=== PATIENT | male | born 1975 | race African-American/Black ===

== ENCOUNTER 2023-01-20 19:32 | Emergency (ER) | payer SELFPAY ==
[2023-01-20] MEDS ORDERED: Acetaminophen 500 MG TAB ONE (20:38)
[2023-01-20] MEDS ORDERED: Dexamethasone 10 MG/ML VIAL ONE (20:56)
[2023-01-20 21:53] LABS: SARS-CoV-2 NAA Rapid Test Not Detected (NotDetected)
== END 2023-01-20 21:04 | disposition home or self-care (01) ==
LOC: ERS 19:32
DX: J06.9 Acute upper respiratory infection, unspecified (principal); J45.909 Unspecified asthma, uncomplicated; Z20.822 Contact with and (suspected) exposure to COVID-19
CPT/HCPCS: 99283; J1100

== ENCOUNTER 2023-06-22 20:57 | Emergency (ER) | payer BC, SELFPAY ==
[2023-06-22] MEDS ORDERED: Lidocaine 4% Patch TD SCH (22:00)
[2023-06-22] MEDS ORDERED: methylPREDNISolone Sod Succ/PF 125 MG/2 ML VIAL ONE (22:02)
[2023-06-22] MEDS ORDERED: Ketorolac Tromethamine 30 MG (1 mL) VIAL ONE (22:02)
[2023-06-23] MEDS ORDERED: Transdermal Patch Removal TOP SCH (10:00)
== END 2023-06-22 22:44 | disposition home or self-care (01) ==
LOC: ERS 20:57
DX: S39.012A Strain of muscle, fascia and tendon of lower back, initial encounter (principal); Z55.6 Problems related to health literacy; J45.909 Unspecified asthma, uncomplicated; X58.XXXA Exposure to other specified factors, initial encounter
CPT/HCPCS: 96372; 99283; J1885; J2930